=== PATIENT | male | born 2000 | race African-American/Black ===

== ENCOUNTER 2020-04-02 17:17 | Emergency (ER) | payer MEDICAID, OTHER ==
[~2020-04-02] VITALS: Ht 185.4 cm; Wt 79.4 kg
[2020-04-02 17:29] VITALS: BP 132/75
[2020-04-02] MEDS ORDERED: DexAMETHasone 0.5MG/5ML ORAL ELIX PO ONE (18:15)
[2020-04-02] MEDS ORDERED: DexAMETHasone SOD PHOS 10MG/1ML VIAL INJ ONE (18:38)
[2020-04-02] MEDS ORDERED: DexAMETHasone SOD PHOS 10MG/1ML VIAL INJ PO ONE (18:45)
== END 2020-04-02 18:49 | disposition home or self-care (01) ==
LOC: ER 17:17
DX: J02.9 Acute pharyngitis, unspecified (principal); R19.7 Diarrhea, unspecified
CPT/HCPCS: 99283; J1100; J8540

== ENCOUNTER 2023-07-22 09:08 | Emergency (ER) | payer SELFPAY ==
[~2023-07-22] VITALS: Ht 180.3 cm; Wt 98.2 kg
[2023-07-22 09:37] VITALS: BP 134/80; PULSE 97; RESP 14; TEMP 98.7; O2SAT 96
[2023-07-22] MEDS: methylPREDNISolone SOD SUCC 125 MG/2 ML VL IM ONE (10:03)
[2023-07-22] MEDS: cefTRIAXone SOD 1,000 MG VL IM ONE (10:03)
[2023-07-22] MEDS ORDERED: LIDO2SOL26 MT (10:08)
[2023-07-22] MEDS ORDERED: PENI500T2 PO (10:08)
== END 2023-07-22 10:15 | disposition home or self-care (01) ==
LOC: ER 09:08
DX: J03.90 Acute tonsillitis, unspecified (principal)
CPT/HCPCS: 96372; 99284; J0696; J2919